=== PATIENT | female | born 1995 | race Caucasian/White ===

== ENCOUNTER 2017-06-10 11:26 | Observation (INO) ==
[2017-06-10] MEDS ORDERED: 0.9 % Sodium Chloride 1,000 ML IVC ONE (11:59)
[2017-06-10] MEDS: 0.9 % Sodium Chloride 1,000 ML IVC SCH (13:55)
[2017-06-10 14:17] LABS: BUN/Creatinine Ratio 18 (6-26); Blood Urea Nitrogen 14 mg/dL (6-20); Calcium 9.5 mg/dL (8.6-10.3); Carbon Dioxide 27 mEq/L (23-29); Chloride 99 mEq/L (98-107); Glucose 87 mg/dL (70-105); Osmolality,Calculated 280 (280-300); Potassium 4.2 mEq/L (3.5-5.1); Sodium 135 mEq/L (136-145); eGFR For African Americans > 60 (> 60); eGFR For Non-African Americans > 60 (> 60)
--- NOTE | 2017-06-10 15:14 | Pediatric History & Physical ---
Date of Encounter: 06/10/17 Time of Encounter: 15:06 Assessment and Plan (1) Acute gastroenteritis Current visit: Yes Status: Acute Likely infectious gastroenteritis, given IV fluids and monitored for improvement. Given roommate with recent mono, testing is pending. Obtained labs prior to IV fluids to assess dehydration. Reports no sexual activity but urine test is also pending. DDx also includes atypical migraine, denies current headache. Will monitor for improvement with IV hydration. 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 Reports initial cough/drainage, feeling weak, myaligia and hot/cold sensations and went to Urgent Care about two weeks ago and diagnosed with URI and given allergy medication including Mucinex D. Symptoms worsened, went back and was diagnosed with bronchitis and given Albuterol and Azithromycin in addition to some cough medicine. After this, developed dizziness and then nausea/vomiting and diarrhea. Seen in ER about 5 days ago. Reportedly had negative strep and flu testing and negative chest X- ray. They report that she was given IV fluids and IM medications, mom believes treatment both for nausea and possible migraine as at that time she also have light/sound sensitivity that have now improved. Continued to have nausea/ vomiting, about 5-10 episodes of nonbloody nonbilious emesis daily and about 3- 4 episodes of nonbloody diarrhea. No fevers. Feels dizzy with standing. Most of nausea/vomiting after eating/drinking -feels that related to swollen glands/ tight neck muscles. Denies any painful swallowing from throat itself. In office, last weight had been 9 pounds heavier in February. Due to ongoing symptoms and weight loss, opted for admission for IV fluids. Past Med Surg Social Fam HX - Past Medical History Source: patient Medical history: syncope, other (anemia) Psychiatric history: no psych history - Past Surgical History Surgical History: other (hernia repair) - Social History Smoking Status: Never smoker Smokeless Tobacco Status: No Alcohol use: none Drug use: none - Family History Mother Family Member Ethnicity: Non- Living Status: Still Living Hx Family Cardiac Disorders: Yes Hx Family Respiratory Disorders: No Hx Family Cancer: No Hx Family GI Disorders: No Hx Family Endocrine Disorder: No Hx Family Neuromuscular Disorders: No Hx Family Neurologic Disorders: No Hx Family HEENT Disorders: No Hx Family Autoimmune Disorders: No Internal Medicine - H&P: Meds Amoxicillin 875 mg PO BID #20 tablet 06/07/15 [Rx] Nasonex 06/07/15 [History] Polymyxn-B/Trimeth Opth Drops [Polytrim Opth Drops] 1 drop BOTH EYES QID 7 Days bottle 06/07/15 [Rx] 3 Allergy/AdvReac Type Severity Reaction Status Date / Time No Known Allergies Allergy Verified 06/07/15 19:03 Review of Systems Obtained from caregiver: No All Systems: The remainder of the systems were reviewed and are negative - Constitutional Constitutional: weight loss, loss of appetite, decreased activity level, no fever - HEENT Eyes: no discharge Ears, nose, mouth, throat: sore throat, mouth breathing, no ear pain, no nasal congestion - Cardiovascular Cardiovascular: no irregular heart beat, no chest pain, no palpitations - Respiratory Respiratory: shortness of breath, no cough - Gastrointestinal Gastrointestinal: nausea, vomiting, diarrhea - Genitourinary Genitourinary: no dysuria - Musculoskeletal Musculoskeletal: pain, no limited ROM, no weakness - Integumentary Integumentary: no rash - Neurological Neurological: dizziness, no headache, no seizures - Psychiatric Psychiatric: no attentional problems, no mood disturbance, no emotional problems - Endocrine Endocrine: no polydipsia, no polyuria - Hematologic/Lymphatic Hematologic/Lymphatic IM: enlarged lymph nodes, no anemia, no easy bruising - Allergic/Immunologic Allergic/Immunologic ROS pediatric: no reaction to drugs, no reaction to food Exam Initial Vital Signs Temp Pulse Resp BP Pulse Ox 99.7 F H 92 16 118/73 98 06/10/17 12:41 06/10/17 12:41 06/10/17 12:41 06/10/17 12:41 06/10/17 12:41 - General Appearance General appearance pediatric: alert, no acute distress, non toxic, well hydrated - Constitutional normal weight - HEENT Head: normocephalic, atraumatic Eyes: vision normal, EOM normal, optic discs normal Pupils: bilateral: normal pupils - Ears Tympanic membrane: bilateral: neutral, chopra, normal movement - Nose Nasal mucosa: normal Nasal septum: normal position - Mouth Lips: normal Teeth: normal dentition Oral mucosa: moist Tonsils: erythematous, exudate - Neck Neck: normal position, neck supple, other (anterior cervical lymphadenopathy) Pharynx: normal - Lungs Inspection: symmetric Auscultation: clear and equal - Cardiovascular Pulse volume: normal Perfusion: adequate Cardiovascular: regular rate, regular rhythm, no murmur Transmission: none Precordial activity: normal - Gastrointestinal non-tender, non-distended, soft, bowel sounds present - Integumentary warm and dry, other lesions - Neurological non focal, reflexes normal - Musculoskeletal Musculoskeletal: normal Internal Med - H&P Results - Labs CBC & Chem 7: 06/10/17 12:50 Labs: BMP 06/10/17 12:50 Sodium 135 L Potassium 4.2 Chloride 99 Carbon Dioxide 27 BUN 14 Creatinine 0.79 Glucose 87 Calcium 9.5
[2017-06-10] MEDS ORDERED: Ondansetron 8 MG in 0.9 % Sodium Chloride 50 ML IVPB ONE (15:23)
[2017-06-10 17:08] LABS: Bilirubin,Urine Small (Negative); Blood,Urine Trace (Negative); Color,Urine Yellow (Yellow); Glucose,Urine (UA) Normal (Normal); Ketones,Urine 80 mg/dL (Negative); Leukocyte Esterase,Urine Negative (Negative); Nitrite,Urine Negative (Negative); Protein,Urine 30 mg/dL (Neg-Trace); Specific Gravity,Urine 1.027 (1.010-1.025); Urobilinogen,Urine Normal (Normal)
[2017-06-10] MEDS: Acetaminophen 325 MG TABLET PO PRN (17:14)
[2017-06-10 17:18] LABS: Bacteria,Urine None Seen per hpf (None-Few); Hyaline Casts,Urine None Seen per lpf (None-Few); Squamous Epithelial Cell,Urine Many per lpf (None-Few)
[2017-06-10 17:20] LABS: Clarity,Urine Slightly Hazy (Clear)
[2017-06-11] MEDS: 0.9 % Sodium Chloride 1,000 ML IVC SCH (00:25)
[2017-06-11] MEDS: Acetaminophen 325 MG TABLET PO PRN ×4 (00:28→22:33)
[2017-06-11] MEDS ORDERED: FLUARIX QUAD 2017-18 36MOS UP/PF 0.5 ML SYRINGE IM ONE (00:40)
[2017-06-11] MEDS: Ibuprofen 600 MG TABLET PO PRN ×2 (06:52→20:43)
--- NOTE | 2017-06-11 08:10 | Pediatric Progress Note ---
Date of Encounter: 06/11/17 Time of Encounter: 06:58 - Assessment and Plan (1) Acute gastroenteritis Current Visit: Yes Status: Acute Patient continues to have fever of 102 F. Will order respiratory infectious panel. [place] test negative. Will order antibody test to confirm. Patient still complaining of watery diarrhea. Denies any blood in stool. given patient's history of the onset of diarrhea when she was started on antibiotics, her diarrhea might be secondary to the antibiotic use. Will order GI infectious panel. (2) Dehydration Current Visit: Yes Status: Acute Patient currently on maintenance fluids of 100 mls/hr 0.9% NS. Patient is able to tolerate liquid diet. Will transition to regular diet and decrease maintenance fluid to 75 mls/hr. Subjective Principal diagnosis: Viral gastroenteritis Interval history: Patient on maintenance fluid of 100 ml/hr. Overnight event of fever of 102 and fever this morning of 102 as well. She has been responding well to zofran. Denies any nausea or vomiting since admission. Able to ambulate with no dizziness or syncope. Currently on clear liquid diet. She has been able to tolerate liquids without vomiting. She admits to intermittent coughing that is occasionally productive. Denies wheezing. Admits to watery diarrhea with no signs of gross blood. Admits to minor abdominal discomfort while eating, but otherwise no abdominal pain. Objective - Vital Signs Vital Signs: Vital Signs Temp Pulse Resp BP Pulse Ox 06/11/17 04:00 98.8 F 90 18 111/55 97 06/11/17 02:00 99.6 F 06/11/17 00:10 102.4 F H 104 20 118/58 96 06/10/17 20:00 99.4 F 76 18 116/61 98 06/10/17 18:15 100.0 F H 06/10/17 16:37 100.3 F H 94 18 119/69 100 06/10/17 12:41 99.7 F H 92 16 118/73 98 Intake and Output 06/10/17 06/11/17 06/11/17 23:59 07:59 15:59 Intake Total 1414 / 1414 250 / 250 Output Total 175 / 175 1000 / 1000 Balance 1239 / 1239 -750 / -750 Intake: IV Fluids 1054 / 1054 0.9 % Sodium Chloride 1,000 ML 1000 / 1000 @ 100 mls/hr IVC .Q10H LEONID Rx#: [id number] Zofran 8 MG In 0.9 % Sodium 54 / 54 Chloride 50 ML @ 216 mls/hr IVPB ONCE ONE Rx#:[id number] Oral 360 / 360 250 / 250 Output: Urine 175 / 175 1000 / 1000 Other: # Bowel Movement Diapers 1 - General Appearance well appearing - HENT HENT: EOM normal, nose normal, teeth normal, oropharynx abnormal (Tonsils enlarged b/l. White exudate present b/l. ) Pupils: bilateral: normal pupils - Neck normal position - Respiratory- Lungs Inspection: symmetric Auscultation: clear and equal - Cardiovascular Cardiovascular: pulse normal, regular rhythm, S1 (normal), S2 (normal), S3 (not detected), S4 (not detected), click (not detected), gallop (not detected), friction rub (not detected) Precordial activity: normal - Gastrointestinal non-tender, non-distended, bowel sounds present - Musculoskeletal normal - Labs 06/10/17 12:50 Abnormal lab results Sodium 135 mEq/L (136-145) L 06/10/17 12:50 Ur Specific [place] 1.027 (1.010-1.025) H 06/10/17 16:45 Urine Protein 30 mg/dL (Neg-Trace) H 06/10/17 16:45 Urine Ketones 80 mg/dL (Negative) H 06/10/17 16:45 Urine Blood Trace (Negative) H 06/10/17 16:45 Urine Bilirubin Small (Negative) H 06/10/17 16:45 Urine Microscopic RBC 3-5 per hpf (0-3) H 06/10/17 16:45 Urine Microscopic WBC 3-5 per hpf (0-3) H 06/10/17 16:45 Ur Squamous Epith Cells Many per lpf (None-Few) H 06/10/17 16:45 All other labs normal. Consult Discharge Plan - Plan Referrals: Anahi Arroyo MD [Primary Care Provider] -
[2017-06-11] MEDS: D5% in 0.9% NACL 1,000 ML IVC SCH ×2 (09:06→22:29)
[2017-06-11 10:38] LABS: Adenovirus F 40/41 PCR Not detected (Not detect); Astrovirus PCR Not detected (Not detect); C.difficile Toxin A/B by PCR Not detected (Not detect); Campylobacter by PCR Not detected (Not detect); Cryptosporidium by PCR Not detected (Not detect); Cyclospora cayetanensis PCR Not detected (Not detect); E. coli O157 by PCR Not detected (Not detect); Entamoeba histolytica PCR Not detected (Not detect); Enteroaggregative E.coli(EAEC) Not detected (Not detect); Enteropathogenic E.coli(EPEC) Not detected (Not detect); Enterotoxigenic E.coli (ETEC) Not detected (Not detect); Giardia lamblia PCR Not detected (Not detect); Norovirus GI/GII PCR Not detected (Not detect); Plesiomonas shigelloides PCR Not detected (Not detect); Rotavirus A PCR Not detected (Not detect); Salmonella PCR Not detected (Not detect); Sapovirus PCR Not detected (Not detect); Shig/EnteroinvasiveE coli EIEC Not detected (Not detect); Shigalike tox-prod E coli STEC Not detected (Not detect); Vibrio PCR Not detected (Not detect); Vibrio cholerae PCR Not detected (Not detect); Yersinia enterocolitica PCR Not detected (Not detect)
[2017-06-11 10:44] LABS: Adenovirus Not Detected (Not Detect); Bordetella Pertussis Not Detected (Not Detect); Chlamydophila pneumoniae Not Detected (Not Detect); Coronavirus 229E Not Detected (Not Detect); Coronavirus HKU1 Not Detected (Not Detect); Coronavirus NL63 Not Detected (Not Detect); Coronavirus OC43 Not Detected (Not Detect); Human Metapneumovirus Not Detected (Not Detect); Human Rhinovirus/Enterovirus Not Detected (Not Detect); Influenza A Subtype 2009 H1 Not Detected (Not Detect); Influenza A Untypeable Not Detected (Not Detect); Influenza B Not Detected (Not Detect); Mycoplasma pneumoniae Not Detected (Not Detect); Parainfluenza Virus 1 Not Detected (Not Detect); Parainfluenza Virus 2 Not Detected (Not Detect); Parainfluenza Virus 3 Not Detected (Not Detect); Parainfluenza Virus 4 Not Detected (Not Detect); Respiratory Syncytial Virus Not Detected (Not Detect)
--- NOTE | 2017-06-11 13:17 | Event Note ---
Date of Encounter: 06/11/17 Time of Encounter: 12:30 Reviewed labs stool study is negaive, [employer] for Resp infection panel is positive for B. parapertussis. Discussed with mom and informed, since she is already treated with z-pack would not need any other meds. Had temp this morning, will observe for now. IV fluid and regular diet as tolerated.
--- NOTE | 2017-06-11 17:48 | Event Note ---
Date of Encounter: 06/11/17 Time of Encounter: 17:44 [place] much better, started to have chills and fever 101.5. cough is more moist, left sided pain off and on. Exam left basal rales heard, no rhonchi or wheeze noted. Will do a chest xray and treat with IV rocephin. Discussed with mom and patient will keep over night
[2017-06-11] MEDS: cefTRIAXone 2,000 MG in Water for inj. (sterile) 20 ML 20 ML IVPB SCH (18:30)
[2017-06-12] MEDS: cefTRIAXone 2,000 MG in Water for inj. (sterile) 20 ML 20 ML IVPB SCH (06:36)
[2017-06-12] MEDS: Ibuprofen 600 MG TABLET PO PRN (06:45)
--- NOTE | 2017-06-12 09:29 | Discharge Summary ---
Date of Encounter: 06/12/17 Time of Encounter: 09:26 NB- Discharge Summary Diag - Discharge Diagnosis (1) Infection due to Bordetella parapertussis Priority: Primary Status: Acute Comments: Resp infection panel positive for bordetella parapertusis, patient has been coughing for more than 2 weeks and was treated with zithromax. Cough is improving off and on having feel spells of cough Code(s): A37.10 - Whooping cough due to Bordetella parapertussis without pneumonia SNOMED Code(s): 22017432 (2) Left lower lobe pneumonia Priority: Secondary Status: Acute Comments: Rales present in the left lower lobe area, clinically pneumonia. Chest xray portable reported as normal. Was treated with Iv rocephin, feeling much better and the temp is down. Will discharge home on oral antibiotics to follow up in 2 to 3 days Code(s): J18.1 - Lobar pneumonia, unspecified organism SNOMED Code(s): 763668454 (3) Acute vomiting Priority: Secondary Status: Acute Comments: Improved with IV fluids and zofran will discharge on zofran as needed Code(s): R11.10 - Vomiting, unspecified SNOMED Code(s): 89113027 (4) Dehydration Priority: Secondary Status: Acute Comments: Improved with IV fluids and is tolerating PO well. Will discharge home on oral meds, to follow up in 2 to 3 days Code(s): E86.0 - Dehydration SNOMED Code(s): 08052428 NB- Discharge Summary Data Procedures and tests throughout hospitalization: Pending Orders 06/10/17 13:48 Resuscitation Status: Active [RES] Routine 06/10/17 13:49 Measure intake and output [RC] QSHIFT Placement to Observation Routine Vital Signs Assessment [RC] Q4H 06/10/17 16:58 Ibuprofen [Motrin] 600 mg PO Q6HR PRN 06/10/17 16:59 Acetaminophen [Tylenol] 650 mg PO Q4HR PRN 06/11/17 06:00 Measure weight [RC] DAILY 06/11/17 08:15 D5% in 0.9% NACL [D5% And 0.9% Nacl 1000 Ml] 1,000 ml IVC 75 mls/hr 06/11/17 18:00 cefTRIAXone [Rocephin] 2,000 mg Water for inj. (sterile) 20 ML [Water for inj. (sterile)] 20 ml IVPB Q12HR 06/11/17 Breakfast Regular Diet Labs on day of discharge: Labs from last 24 hours 06/11/17 06/11/17 06/10/17 08:30 08:12 14:23 Stl C. cayetanensis PCR Not detected Stool Rotavirus A PCR Not detected Stl Adenov F 40/41 PCR Not detected Stool Astrovirus (PCR) Not detected Stool Campylobacter PCR Not detected Stl C. diff Tox A/B PCR Not detected Stool Cryptosporidium PCR Not detected Stl Sh Tox Pr E STEC PCR Not detected Stool E coli O157 PCR Not detected Stl Enterotoxigenic E PCR Not detected Stool EPEC (PCR) Not detected Stool EAEC (PCR) Not detected Stl E. histolytica PCR Not detected Stool Giardia Lamblia PCR Not detected Stool Salmonella PCR Not detected Stool Sapovirus (PCR) Not detected Stl P. shigelloides PCR Not detected Stl Shigella/EIEC PCR Not detected St Y.enterocolitica PCR Not detected Stool Vibrio (PCR) Not detected Stl Vibrio cholerae PCR Not detected Stl Norovirus GI/GII PCR Not detected Stl GI Panel (PCR) Com See below Chlamy pneumoniae PCR Not Detected Adenovirus (PCR) Not Detected B. pertussis DNA (PCR) Not Detected B.parapertussis DNA PCR DETECTED A* Coronavirus OC43 (PCR) Not Detected Coronavirus HKU1 (PCR) Not Detected Coronavirus 229E (PCR) Not Detected Coronavirus NL63 (PCR) Not Detected EBV Capsid Ag IgM Ab Negative Human Metapneumovir PCR Not Detected Influenza A (H1) PCR Not Detected Influ A (H1N1/09) PCR Not Detected Influenza A (H3) PCR Not Detected Influenza A Untype (PCR) Not Detected Influenza Type B (PCR) Not Detected M.pneumoniae DNA (PCR) Not Detected Parainfluenza 1 (PCR) Not Detected Parainfluenza 2 (PCR) Not Detected Parainfluenza 3 (PCR) Not Detected Parainfluenza 4 (PCR) Not Detected RSV (PCR) Not Detected Entero/Rhino (PCR) Not Detected - Impressions ITS Impressions Chest X-Ray 06/11/17 17:49 IMPRESSION: No acute process. D/ / Miguel Man MD / Miguel Man MD Interpreting Provider: Miguel Man MD - DS Prov Date of admission: 06/10/17 12:03 Primary care physician: Anahi Arroyo MD NB- Discharge Summary A/P - Discharge Instructions Instructions: Pertussis in Children (DC) Follow Up With: Anahi Arroyo MD [Primary Care Provider] - Christian Frey MD [Partnered Physician] - - Patient Status Condition: Good - Time Spent with Patient Time Attestation: Total time spent providing and/or coordinating discharge services: NB- Discharge Summary Exam - Weights Discharge Weight: 87.317 kg - General Appearance General Appearance: Present: Good color and tone, Strong cry - Constitutional Constitutional: Average for gestational age - Head Head: Present: Normocephalic, Atraumatic Anterior Strawn: Present: Open, Soft and flat - Eyes Eyes: Present: Red Reflex positive bilaterally - Ears Ears: Present: Normal position and shape - Nose Nose: Present: Moist membranes - Mouth Mouth: Present: Intact palate, Moist mocous membranes, Abnormality, see notes ( tonsils enlarged no redness) - Chest Chest: Present: Symmetric excursion, Clear and equal breath sounds, No labored breathing - Cardiovascular Cardiovascular: Present: Regular rate and rhythm, 2+ femoral pulses - Abdomen Abdomen: Present: Soft, Nontender, Nondistended, Positive bowel sounds, No hepatoplenomegaly, 3 vessel cord - Anus Anus: Present: Patent Appearance - Skin Skin: Present: No lesion - Neurological Neurological: Present: Hiren reflex, Grasp reflex, Suck reflex, Normal tone - Musculoskeletal Musculoskeletal: Present: Moves all extremities well, Normal hip abduction, Clavicles intact - Trunk and Spine Trunk and Spine: Present: Spine intact
[2017-06-12 09:44] VITALS: BP 115/62
--- NOTE | 2017-06-12 09:45 | Discharge Summary ---
Date of Encounter: 06/12/17 Time of Encounter: 09:43 - NOTES TO OUTPATIENT PROVIDER Notes to Outpatient Provider: Positive for bordetella parapertussis, treated with zithromax. Concern of pneumonia on cefdinir - Discharge Diagnosis (1) Infection due to Bordetella parapertussis Priority: Primary Status: Acute Comments: Resp infection panel was positive for bordetella parapertussis, was treated prior to admission with zithromax. [facility] recommended no prophylaxis. Doing better still having cough off and on (2) Left lower lobe pneumonia Priority: Secondary Status: Acute Comments: Clinically diagnosed with pneumonia and is doing better after 2 doses of recephin. Temp is down, will discharge home on oral meds Qualifiers: Pneumonia type: due to unspecified organism Qualified Code(s): J18.1 - Lobar pneumonia, unspecified organism (3) Acute vomiting Priority: Secondary Status: Acute Comments: Improved and is tolerating PO well, discharge home on zofran (4) Dehydration Priority: Secondary Status: Acute Comments: Improved with IV fluid and is tolerating PO well, discharge home on regular diet - Hospital Course Hospital course: Addis is doing much better, temp is down and tolerating PO well. No diarrhea. No complains. [place] better after eating breakfast. Clinically diagnosed her with LLL pneumonia and treated with IV rocephin and is feeling better after 2 doses of antibiotics. Will discharge home to day with oral antibiotics - Time Spent with Patient Total time spent providing and/or coordinating discharge services: - Discharge Medications Prescriptions: Cefdinir [Omnicef] 300 mg PO BID #20 capsule Ondansetron HCl [Zofran] 4 mg PO Q4-6H PRN #20 tablet PRN Reason: Nausea And Vomiting Home Medications: Cefdinir [Omnicef] 300 mg PO BID #20 capsule 06/12/17 [Rx] Ondansetron HCl [Zofran] 4 mg PO Q4-6H PRN #20 tablet 06/12/17 [Rx] Allergies/Adverse Reactions: 3 Allergy/AdvReac Type Severity Reaction Status Date / Time No Known Allergies Allergy Verified 06/07/15 19:03 Date of admission: 06/10/17 12:03 Primary care physician: Anahi S Arroyo, MD Exam Initial Vital Signs Temp Pulse Resp BP Pulse Ox 99.7 F H 92 16 118/73 98 06/10/17 12:41 06/10/17 12:41 06/10/17 12:41 06/10/17 12:41 06/10/17 12:41 - General Appearance General appearance pediatric: alert, no acute distress, non toxic, well hydrated - Constitutional normal weight - HEENT Head: normocephalic, atraumatic Eyes: vision normal, EOM normal, optic discs normal Pupils: bilateral: normal pupils - Ears Tympanic membrane: bilateral: neutral, chopra, normal movement - Nose Nasal mucosa: normal Nasal septum: normal position - Mouth Lips: normal Teeth: normal dentition Oral mucosa: moist Tonsils: normal - Neck Neck: normal position, neck supple, no cervical lymphadenopathy Pharynx: normal - Lungs Inspection: symmetric Auscultation: crackles (left basal area) - Cardiovascular Pulse volume: normal Perfusion: adequate Cardiovascular: regular rate, regular rhythm, S1, S2, no murmur Transmission: none Precordial activity: normal - Gastrointestinal non-tender, non-distended, soft, bowel sounds present - Integumentary warm and dry, other lesions - Neurological non focal, reflexes normal - Musculoskeletal Musculoskeletal: normal Labs on day of discharge: Labs from last 24 hours 06/11/17 06/11/17 06/10/17 08:30 08:12 14:23 Stl C. cayetanensis PCR Not detected Stool Rotavirus A PCR Not detected Stl Adenov F 40/41 PCR Not detected Stool Astrovirus (PCR) Not detected Stool Campylobacter PCR Not detected Stl C. diff Tox A/B PCR Not detected Stool Cryptosporidium PCR Not detected Stl Sh Tox Pr E STEC PCR Not detected Stool E coli O157 PCR Not detected Stl Enterotoxigenic E PCR Not detected Stool EPEC (PCR) Not detected Stool EAEC (PCR) Not detected Stl E. histolytica PCR Not detected Stool Giardia Lamblia PCR Not detected Stool Salmonella PCR Not detected Stool Sapovirus (PCR) Not detected Stl P. shigelloides PCR Not detected Stl Shigella/EIEC PCR Not detected St Y.enterocolitica PCR Not detected Stool Vibrio (PCR) Not detected Stl Vibrio cholerae PCR Not detected Stl Norovirus GI/GII PCR Not detected Stl GI Panel (PCR) Com See below Chlamy pneumoniae PCR Not Detected Adenovirus (PCR) Not Detected B. pertussis DNA (PCR) Not Detected B.parapertussis DNA PCR DETECTED A* Coronavirus OC43 (PCR) Not Detected Coronavirus HKU1 (PCR) Not Detected Coronavirus 229E (PCR) Not Detected Coronavirus NL63 (PCR) Not Detected EBV Capsid Ag IgM Ab Negative Human Metapneumovir PCR Not Detected Influenza A (H1) PCR Not Detected Influ A (H1N1/09) PCR Not Detected Influenza A (H3) PCR Not Detected Influenza A Untype (PCR) Not Detected Influenza Type B (PCR) Not Detected M.pneumoniae DNA (PCR) Not Detected Parainfluenza 1 (PCR) Not Detected Parainfluenza 2 (PCR) Not Detected Parainfluenza 3 (PCR) Not Detected Parainfluenza 4 (PCR) Not Detected RSV (PCR) Not Detected Entero/Rhino (PCR) Not Detected - Impressions ITS Impressions Chest X-Ray 06/11/17 17:49 IMPRESSION: No acute process. D/ / Miguel Man MD / Miguel Man MD Interpreting Provider: Miguel Man MD - Patient Status Disposition: Home, Self-Care Condition: Good Functional capacity at discharge: independent ambulation Overall status at discharge: patient is progressing back to baseline - Discharge Instructions Instructions: Pertussis in Children (DC) Follow Up With: Anahi Arroyo MD [Primary Care Provider] - Christian Frey MD [Partnered Physician] - - Diet and Activity Activity: increase activity as tolerated, return to school once cleared by your PCP/specialist Diet: regular diet - VTE Reasons for not Prescribing Prophylaxis: Treatment not Indicated - Low risk for VTE
== END 2017-06-12 11:43 | disposition home or self-care (01) ==
LOC: 1NENUPED
PROVIDERS: ADMIT Pediatrics; ATTEND Pediatrics